=== PATIENT | female | born 2005 | race Caucasian/White ===

== ENCOUNTER 2024-08-24 14:24 | Emergency (ER) | payer BC, SELFPAY ==
[2024-08-24 14:40] VITALS: BP 125/74; PULSE 74; RESP 18; TEMP 36.9; O2SAT 99; BMI 22.8
--- NOTE | 2024-08-24 15:05 | ED.WOUNDLAC ---
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 She was in a cross-country skiing race yesterday, someone fell in front of her and she could not stop, caused her to fall. She thinks her ski pole actually cut into her pants on the right and tore it. She is not exactly sure what happened. She did continue to ski for another 15 climb others before she noticed the pants were torn and there was blood. She was worried maybe about a puncture wound. Her knee was more swollen last night. There is bruising, does hurt to walk along the anterior knee. She believes her tetanus is up-to-date. Patient states there is no chance for . Related Data Home Medications ?Medication ?Instructions ?Recorded ?Confirmed No Known Home Medications 08/24/24 08/24/24 Allergies Allergy/AdvReac Type Severity Reaction Status Date / Time No Known Drug Allergies Allergy Verified 08/24/24 14:42 Review of Systems Narrative[facility] History No significant past medical history Surgical History No significant past surgical history Social History Smoking Status: Never smoker Second hand tobacco smoke exposure: No How often do you have a drink containing alcohol: never AUDIT-C Alcohol total score: 0 Non-prescribed substance use: denies use Exam Const: Vital Signs, click to edit/add: Vital Signs - 24 hr 08/24/24 14:40 Temperature 98.5 F Pulse Rate [Right Pulse Oximeter] 74 Respiratory Rate 18 Blood Pressure [Ri ght Upper Arm] 125/74 Pulse Oximetry 99 Oxygen Delivery Me thod Room Air This 19-year-old female is alert, interactive, no apparent distress. She has 2 superficial abrasions along her right anterior knee, 1 overlies the superior patellar region, 1 is a little inferior to that and just medial to the patellar tendon. They are scabbing over, no surrounding concerning erythema, swelling or drainage. She has significant bruising along the medial portion of the knee and goes from the patella through down to the medial patellar tendon area. She is tender when I palpate over the patella, medially along the knee joint space and along the patellar tendon. She can straight leg raise. There is no definitive effusion noted. I can fully flex and extend her knee. She did ambulate in. Documenting provider has reviewed patient's vital signs: yes Course Course ED Course: Reviewed with patient wound care, recommend antibiotic ointment like bacitracin and bandages, watch for infection. Tetanus is reported to be up-to-date. I would recommend that we do image with plain films her right knee to ensure no underlying fracture. There is significant bruising, cannot rule out fracture on clinical basis and do recommend the x-rays. She does agree to proceed with x-ray imaging of her right knee. Reevaluation(s) Time of Reevaluation #1: 16:16 Reevaluation #1: Have reviewed negative x-rays for fracture. We will put some bandages with bacitracin on, discharge to home. Discussed watching wounds for infection, reviewed wound care. Vital Signs Vital signs: Initial Vital Signs Temperature 98.5 F 08/24/24 14:40 Temperature Source Temporal Artery Scan 08/24/24 14:40 Pulse Rate 74 08/24/24 14:40 Respiratory Rate 18 08/24/24 14:40 Blood Pressure 125/74 08/24/24 14:40 Blood Pressure Mean 91 08/24/24 14:40 Blood Pressure Position Sitting 08/24/24 14:40 Pulse Oximetry 99 08/24/24 14:40 Oxygen Delivery Method Room Air 08/24/24 14:40 Vital Signs Temperature 98.5 F 08/24/24 14:40 Pulse Rate 74 08/24/24 14:40 Respiratory Rate 18 08/24/24 14:40 Blood Pressure 125/74 08/24/24 14:40 Pulse Oximetry 99 08/24/24 14:40 Oxygen Delivery Method Room Air 08/24/24 14:40 Temperature 98.5 F 08/24/24 14:40 Pulse Rate 74 08/24/24 14:40 Respiratory Rate 18 08/24/24 14:40 Blood Pressure 125/74 08/24/24 14:40 Pulse Oximetry 99 08/24/24 14:40 Oxygen Delivery Method Room Air 08/24/24 14:40 MDM - Wound/Laceration Imaging Data XR right knee: Attestation: I have reviewed the pertinent imaging results. My impression: I see no acute pathology on my preliminary review of this knee series. Radiologist's impression: Patient: TEREZA BETANCOURT Facility:?[facility] Patient ID:?[id number] Site Patient ID:?[id number]. Site :?2004 Study:?XRay-Knee Right 3 VIEW-08/24/2024 3:27:38 PM Ordering Physician:Larry Hawley Final Report: INDICATION: Fall skiing TECHNIQUE: Three views right knee FINDINGS/IMPRESSION: Normal alignment. No acute fracture or acute osseous abnormalities are visualized. Soft tissue edema. No effusion Dictated by Jane Doherty MD @ 08/24/2024 3:50:58 PM (Electronic Signature) Discharge Plan Discharge Clinical Impression: Abrasion, right knee, initial encounter Contusion of knee, right Qualifiers: Encounter type: initial encounter Qualified Code(s): S80.01XA - Contusion of right knee, initial encounter Patient Disposition: Home, Self-Care Condition: Stable Instructions: Contusion in Adults (ED), Abrasion (ED) Additional Instructions: Try to ice and elevate this right knee when your able to the next couple of days. This will help decrease pain and swelling. Use bacitracin and bandages as needed until these wounds are healed. It is fine to shower but you should otherwise try to keep these wounds clean and dry. If there is concern for infection, please seek re-evaluation. Do recommend Tylenol and ibuprofen per bottle directions if needed for any discomfort. Activity Level: Activity as Tolerated Prescriptions: No Action No Known Home Medications Follow Up/Referrals: Provider,Not a Local [Primary Care Provider] - Stand Alone Forms: [employer] Info Instructions
--- NOTE | 2024-08-24 15:10 | CRLHL7_ITS ---
For Patients: As a result of the Cures Act, medical imaging exams and procedure reports are released immediately into your electronic medical record. You may view this report before your referring provider. If you have questions, please contact your health care provider. INDICATION: Fall skiing TECHNIQUE: Three views right knee FINDINGS/IMPRESSION: Normal alignment. No acute fracture or acute osseous abnormalities are visualized. Soft tissue edema. No effusion Dictated by Jane Doherty MD @ 08/24/2024 3:50:58 PM (Electronically Signed)
--- OUTSIDE RECORDS SUMMARY | 2024-08-24 15:42 | XMS_ITS | Clinical Summary ---
Author Organization [facility] Address [address] [place] [address], [address] [place] [address] Care Team Providers Care Belt Changer Name Role Phone Omero Calhoun MD Primary Care Provider [phone] Source Comments STORK (Labor and Delivery) documents do not appear in the Encounter Summary [facility] Allergies No known active allergies Medications * Please verify current medications with patient. no known medications prior to admission Use 1 each as directed by physician One time. Active Social History Tobacco Use Types Packs/Day Years Used Date Smoking Tobacco: Never Smokeless Tobacco: Never Alcohol Use Standard Drinks/Week Comments No 0 (1 standard drink = 0.6 oz pur e alcohol) Comments Unknown Sex and Gender Information Value Date Recorded Sex Assigned at Not on file Legal Sex Female 10:10 AM [facility] Gender Identity Not on file Sexual Orientation Not on file Last Filed Vital Signs Vital Sign Reading Time Taken Comments Blood Pressure 115/60 10/24/2017 9:01 PM MDT Pulse 63 10/24/2017 9:01 PM MDT Temperature 36.8 C (98.3 F) 10/24/2017 9:01 PM MDT Respiratory Rate 16 10/24/2017 9:01 PM MDT Oxygen Saturation 95% 10/24/2017 9:01 PM MDT Inhaled Oxygen Concentration - - Weight 46.7 kg (103 lb) 10/24/2017 8:05 PM MDT Height 157.5 cm (5' 2) 10/24/2017 8:05 PM MDT Body Mass Index 18.84 10/24/2017 8:05 PM MDT Plan of Treatment Health Maintenance Due Date Last Done Comments HIV Screening 2004 Hepatitis C Screening 2004 COVID-19 Vaccine (2023- season) 2024 Influenza Vaccine (#1) 2024 7, 06/29/2016, 04/19/2010, Additional history exists Tetanus Diphtheria and Pertussis Vaccines (7 - Td or Tdap) 11/11/2025 11/12/2015, 02/09/2009, 11/23/2005, Additional history exists Zoster Vaccines (1 of 2) 2054 RSV Vaccines (1 - 1-dose 75+ series) 2079 Hepatitis B Vaccine Completed 05/19/2005, 2004, 2004 Hib Vaccine Completed 05/19/2005, 09/01, 2004 Pneumococcal Vaccine: Pediatrics (0 to 5 Years) and At-Risk Patients (6 to 64 Years) Aged Out 05/19/2005, 2004, 2004, Additional history exists No longer eligible based on patient's age to complete this topic IPV Vaccine Completed 02/09/2009, 10/31, 2004, Additional history exists Meningococcal Vaccine (MCV4) Aged Out 11/12/2015 No longer eligible based on patient's age to complete this topic HPV Vaccine Completed 06/29/2016, 01/31, 11/12/2015 Hepatitis A Vaccine Completed 06/29/2016, 6 Rotavirus Vaccine Aged Out No longer eligible based on patient's age to complete this topic Insurance [place] [address] Care Teams Belt Changer Relationship Specialty Start Date End Date Omero Calhoun MD [address] [place] [place] [address] PCP - General Internal Medicine 09/29/14
--- OUTSIDE RECORDS SUMMARY | 2024-08-24 15:42 | XMS_ITS | Referral Summary ---
Author Organization [facility] Address [address] [place] [address], [address] [place] [address] Care Team Providers Care Clinical Science Consultant Name Role Phone Omero Calhoun MD Primary Care Provider [phone] Source Comments STORK (Labor and Delivery) documents do not appear in the Encounter Summary [facility] Allergies No known active allergies [...] on file Legal Sex Female 10:10 AM [facility] Gender Identity Not on file Sexual Orientation [...] 10/24/2017 8:05 PM MDT Plan of Treatment Not on file Insurance [place] [address] Care Teams Clinical Science Consultant Relationship Specialty Start Date End Date Omero Calhoun MD [address] [place] [address] PCP - General Internal Medicine 09/29/14
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
--- OUTSIDE RECORDS SUMMARY | 2024-08-24 15:42 | XMS_ITS | Clinical Summary ---
Author Organization [facility] Address [address] [place] [address] Care Team Providers Care Concrete Rod Buster Name Role Phone Unavailable Primary Care Provider Unavailabl e Allergies No known active allergies Medications typhoid (VIVOTIF) SR capsule vaccineIndication s:Need for immunization against typhoid Take 1 capsule by mouth every other day. 4 capsule 4 Active Active Problems Problem Noted Date Diagnosed Date Inflammatory acne 08/18/2020 Overview (01/22/2024): Inflammatory-- chin, cheeks and forehead Doxy x 2 months did not help Retin-A 0.1% uses it on and off Trial of spironolactone. -- only mild improvement oral contraceptive pill did not help status post acutane and doing great with topicals Updated 12/28/2021 Lactose intolerance 04/19/2020 Overview (01/22/2024): Avoiding dairy has helped Allergic rhinitis 10/13/2014 Overview (01/22/2024): Treatment: 06/15/21 -advised to start Cetirizine 10mg [...] 4 weeks if no improvement in symptoms Immunizations Name Administration Dates Next Due DTaP 02/09/2009, 6,2004,09/01,2004 HPV 9-Valent 06/29/2016,02/22/2016,11/12/2015 Hep A, 2 Dose - Ped/Adol 06/29/2016,11/12/2015 Hep B / HiB 05/19/2005,2004,2004 IPV 02/09/2009, 5,2004,07/03 Influenza, Injectable, Quadr ivalent, Preservative Free 06/08/2020,08/23/2018,05/31/2017 Influenza, seasonal, injectable 04/19/2010,05/31 Influenza, seasonal, injecta ble, Preservative Free 06/29/2016,06/21/2005,05/19/2005 MMR 02/09/2009,05/19/2005 Meningococcal Conjugate 06/08/2020,11/12/2015 Pneumococcal Conjugate PCV 7 05/19/2005, 2004,2004,07/03 Tdap 01/22/2024,11/12/2015 01/21/2034 Varicella 02/09/2009,05/19/2005 Yellow Fever Vaccine - Alternate 06/21/2018 Social History Tobacco Use Types Packs/Day Years Used Date Smoking Tobacco: Never Smokeless Tobacco: Never Tobacco Cessation:Counseling Given: Not Answered Alcohol Use Standard Drinks/Week Comments Never 0 (1 standard drink = 0.6 oz pur e alcohol) [facility] Utilities Answer Date Recorded In the past 12 months has e Done., gas, oil, or water [employer] threatened to shut off services in your home? No 01/22/2024 Social Connection and Isolat ion Panel [NHANES] Answer Date Recorded In a typical week, how many times do you talk on the phone with family, friends, or neighbors? More than three times a week 01/22/2024 How often do you get togethe r with friends or relatives? Once a week 01/22/2024 How often do you attend chur ch or yazidism services? Never 01/22/2024 Do you belong to any clubs o r organizations such as orthodoxy groups, unions, fraternal or athletic groups, or school groups? No 01/22/2024 How often do you attend meet ings of the clubs or organizations you belong to? Never 01/22/2024 Are you , , di vorced, , never , or living with a partner? Never 01/22/2024 AUDIT-C Answer Date Recorded Q1: How often do you have a drink containing alcohol? Never 01/22/2024 Q2: How many drinks containi ng alcohol do you have on a typical day when you are drinking? Patient does not drink Q3: How often do you have si x or more drinks on one occasion? Never 01/22/2024 Overall Financial Resource Strain (CARDIA) Answe r Date Recorded How hard is it for you to pa y for the very basics like food, housing, medical care, and heating? Not hard at all 01/22/2024 [facility] - Occupational Stress Questionnaire Answer Date Recorded Do you feel stress - tense, restless, nervous, or anxious, or unable to sleep at night because your mind is troubled all the time - these days? Only a little 01/22/2024 Exercise Vital Sign Answer Date Recorde d On average, how many days pe r week do you engage in moderate to strenuous exercise (like a brisk walk)? 7 days 01/22/2024 On average, how many minutes do you engage in exercise at this level? 60 min 01/22/2024 Hunger Vital Sign Answer Date Recorded Within the past 12 months, y ou worried that your food would run out before you got the money to buy more. Never true 01/22/20 24 Within the past 12 months, t he food you bought just didn't last and you didn't have money to get more. Never true 01/22/2024 PRAPARE - Transportation Answer Date Re corded In the past 12 months, has l ack of transportation kept you from medical appointments or from getting medications? No 12/31 In the past 12 months, has l ack of transportation kept you from meetings, work, or from getting things needed for daily living? No 01/22/2024 Housing Stability Vital Sign Answer Andry e Recorded In the last 12 months, was t here a time when you were not able to pay the mortgage or rent on time? No 01/22/2024 In the past 12 months, how m any times have you moved where you were living? 2 01/22/2024 At any time in the past 12 m [facility], were you homeless or living in a [facility] (including now)? No 01/22/2024 Comments No Sex and Gender Information Value Date Recorded Sex Assigned at Female 01/22/2024 9:51 AM MDT Legal Sex Female 7:55 AM MDT Gender Identity Female 01/22/2024 9:51 AM MDT Sexual Orientation Straight 01/22/2024 9: 51 AM MDT Last Filed Vital Signs Vital Sign Reading Time Taken Comments Blood Pressure 104/68 01/22/2024 10:08 AM MDT Pulse 79 01/22/2024 10:08 AM MDT Temperature 36.7 C (98.1 F) 01/22/2024 10:08 AM MDT Respiratory Rate 16 01/22/2024 10:08 AM MDT Oxygen Saturation 94% 01/22/2024 10:08 AM MDT Inhaled Oxygen Concentration - - Weight 75.8 kg (167 lb 3.2 oz) 01/22/2024 10:08 AM MDT Height 175.3 cm (5' 9) 01/22/2024 10:08 AM MDT Body Mass Index 24.69 01/22/2024 10:08 AM MDT Plan of Treatment Health Maintenance Due Date Last Done Comments Skin Cancer Screening 2005 Influenza Vaccine (#1) 2024 , 08/23/2018, 05/31/2017, Additional history exists COVID-19 Vaccine ( season) 2024 12/28/2021, 10/25/2020, 09/27/2020 DTaP,Tdap,and Td Vaccines (8 - Td or Tdap) 01/21/2034 01/22/2024, 11/12/2015, 02/09/2009, Additional history exists HIB Vaccines Completed 05/19/2005, 09/01, 2004 Hepatitis B Vaccines Completed 05/19/2005, 2004, 2004 Pneumococcal Vaccine: Pediatrics (0 to 5 Years) and At-Risk Patients (6 to 64 Years) Aged Out 05/19/2005, 2004, 2004, Additional history exists No longer eligible based on patient's age to complete this topic IPV Vaccines Completed 02/09/2009, 10/31, 2004, Additional history exists HPV Vaccines Completed 06/29/2016, 01/31, 11/12/2015 Hepatitis A Vaccines Completed 06/29/2016, 11/12/19 16 Meningococcal Vaccine Completed 06/08/2020, 016 Insurance /[facility]
--- OUTSIDE RECORDS SUMMARY | 2024-08-24 15:42 | XMS_ITS | Encounter Summary ---
Author Organization [facility] Address [address] [place] [address], [address] [place] [address] Care Team Providers Care Shoulder Puncher Name Role Phone Omero Calhoun MD Primary Care Provider [phone] Source Comments In the event that these patient records contain information protected by federal confidentiality rules ( 42 CFR Part 2), the Federal rules prohibit you from making any further disclosure of this information unless further disclosure is expressly permitted by the written consent of the person to whom it pertains or as otherwise permitted by 42 CFR Part 2. A general authorization for the release ofmedical or other information is NOT sufficicient for this purpose. The Federal rules restrict any use of the information to criminally investigate or prosecute any alcohol or drug abuse patient.[facility] Encounter Details Date Type Department Care Team (Late st Contact Info) Description 06/16/2006 Historical Visit [facility] [address] [place] [address] Radha Real MD [address] [facility] [place] [address] Social History Tobacco Use Types Packs/Day Years Used Date Smoking Tobacco: Never Assessed Comments Unknown Sex and Gender Information Value Date Recorded Sex Assigned at Not on file Legal Sex Female 10:10 AM [facility] Gender Identity Not on file Sexual Orientation Not on file documented as of this encounter Plan of Treatment Not on file documented as of this encounter Visit Diagnoses Not on filedocumented in this encounter Care Teams Shoulder Puncher Relationship Specialty Start Date End Date Omero Calhoun MD [address] [place] [address] PCP - General Internal Medicine 09/29/14 documented as of this encounter
[2024-08-24 16:17] VITALS: BP 121/70; PULSE 79; RESP 18; TEMP 36.9; O2SAT 99
[2024-08-24 16:28] VITALS: BP 121/70; PULSE 79; RESP 18; TEMP 36.9
== END 2024-08-24 16:28 | disposition home or self-care (01) ==
PROVIDERS: Emergency Provider Family Medicine
DX: S80.01XA Contusion of right knee, initial encounter (principal); W21.89XA Striking against or struck by other sports equipment, initial encounter; Y93.23 Activity, snow (alpine) (downhill) skiing, snowboarding, sledding, tobogganing and snow tubing
CPT/HCPCS: 73562; 99283